=== PATIENT | male | born 1940 | race African-American/Black ===

== ENCOUNTER 2020-03-22 07:27 | Inpatient (IN) ==
[2020-03-22] MEDS ORDERED: DILTIAZEM 50 MG/10 ML VIAL IV STA ×2 (07:50→09:43)
[2020-03-22] MEDS ORDERED: SODIUM CHLORIDE 0.9% 1,000 ML IV STA (07:50)
[2020-03-22 08:01] LABS: Basophils % 0.3 % (0.0-0.8); Eosinophils # 0.1 10*3/uL (0.0-0.87); Eosinophils % 0.8 % (0.00-10.9); Hematocrit 31.5 VOL% (42.0-52.0); Hemoglobin 9.6 GM/DL (14.0-18.0); Immature Granulocytes % 0.3 %; Immature Granulocytes Absolute 0.02 #; Lymphocytes # 0.7 10*3/uL (1.4-4.0); Lymphocytes % 11.5 % (21.2-54.2); Mean Corpuscular HGB Conc 30.5 GM/DL (32-36); Mean Corpuscular Volume 101.6 FL (87-102); Mean Platelet Volume 9.5 FL (9.6-12.0); Monocytes % 5.4 % (1.7-12.7); Neutrophils % 81.7 % (38.7-73.9); Platelet Count 170 T/CUMM (130-400); Red Cell Distribution Width 14.2 % (9.3-17.3); White Blood Count 5.9 T/CUMM (4-12)
[2020-03-22 08:10] LABS: INR 1.3; PT Patient Result 14.2 SECS (9.8-11.9); Partial Thromboplastin Time 27.6 SECS (23.9-33.8)
[2020-03-22] MEDS: dilTIAZem Drip 125 MG/125 ML PREMIX IV SCH ×2 (08:13→11:11)
[2020-03-22 08:27] LABS: Alanine Aminotransferase 21 U/L (16-61); Albumin 2.9 G/DL (3.4-5.0); Alkaline Phosphatase 102 U/L (45-117); Aspartate Amino Transferase 12 U/L (0-37); Blood Urea Nitrogen 28 MG/DL (7-18); Calcium 9.5 MG/DL (8.5-10.1); Estimated Glom Filtration Rate 45 ML/MIN; Glucose 267 MG/DL (74-106); Osmolality,Calculated 295.3 MOS/KG (273-304); Total Protein 7.1 G/DL (6.4-8.3)
[2020-03-22] MEDS ORDERED: DOCUSATE SODIUM 100 MG CAPSULE PO PRN (09:37)
[2020-03-22] MEDS ORDERED: ONDANSETRON 4 MG/2 ML VIAL IV PRN (09:37)
[2020-03-22] MEDS ORDERED: DEXTROSE 50% 25 GM/50 ML VIAL IV PRN (09:37)
[2020-03-22] MEDS ORDERED: ACETAMINOPHEN 325 MG TABLET PO PRN (09:37)
[2020-03-22] MEDS ORDERED: GLUCAGON 1 MG VIAL IM PRN (09:37)
[2020-03-22] MEDS ORDERED: AZITHROMYCIN INJ 500 MG in SODIUM CHLORIDE 0.9% 250 ML IV SCH (10:00)
[2020-03-22] MEDS ORDERED: ENOXAPARIN 40 MG/0.4 ML SYRINGE SUBCUT SCH (10:00)
[2020-03-22] MEDS: methylPREDNISolone SOD SUC 40 MG/1 ML VIAL IV SCH ×3 (12:00→21:57)
[2020-03-22] MEDS: LEVALBUTEROL 1.25 MG/3 ML NEB RESP TX SCH ×2 (13:08→20:12)
[2020-03-22] MEDS ORDERED: AMIODARONE 150 MG/3 ML VIAL ONE (13:24)
[2020-03-22] MEDS ORDERED: AMIODARONE 450 MG/9 ML VIAL IV ONE (13:26)
[2020-03-22] MEDS: TERAZOSIN 5 MG CAPSULE PO SCH (17:15)
[2020-03-22] MEDS: ASCORBIC ACID 500 MG TABLET PO SCH ×2 (17:25→21:45)
[2020-03-22] MEDS: cefTRIAXone 1,000 MG in SYRINGE 1 EACH IV SCH (17:30)
[2020-03-22 17:41] LABS: Bacteria,Urine Occasional /HPF (Few); Bilirubin,Urine Negative (Negative); Blood, Urine Small mg/dL (Negative); Glucose,Urine (UA) 50 mg/dL (Negative); Hyaline Casts,Urine 13 /LPF (0-3); Ketones,Urine 5 mg/dL (Negative); Mucus,Urine Occasional /LPF (Occasional); Nitrite,Urine Negative (Negative); Protein,Urine 30 MG/DL; RBC,Urine 4 /HPF (0-4); Squamous Epithelial Cell,Urine Occasional /HPF (0-10); Urine Appearance CLEAR (Clear); Urine Color Yellow (Yellow); Urine Specific Gravity 1.021 (1.001-1.035); Urine Urobilinogen < 2.0 EU/DL (0.2-1.0); WBC,Urine 4 /HPF (0-6)
[2020-03-22] MEDS: ENOXAPARIN 80 MG/0.8 ML SYRINGE SUBCUT SCH (18:14)
[2020-03-22] MEDS: SODIUM CHLORIDE 0.9% 1,000 ML IV SCH ×2 (18:15→19:05)
[2020-03-22] MEDS: INSULIN LISPRO 100 UNIT/ML SUBCUT SCH ×3 (18:52→21:47)
[2020-03-22] MEDS: glipiZIDE 10 MG TABLET PO SCH (21:45)
[2020-03-22] MEDS: AZITHROMYCIN INJ 500 MG in SODIUM CHLORIDE 0.9% 250 ML IV SCH (22:00)
[2020-03-22] MEDS: AMIODARONE INJ 450 MG in DEXTROSE 5% 241 ML IV SCH (23:34)
[2020-03-23] MEDS: LEVALBUTEROL 1.25 MG/3 ML NEB RESP TX SCH ×4 (01:42→19:20)
[2020-03-23] MEDS: ENOXAPARIN 80 MG/0.8 ML SYRINGE SUBCUT SCH ×2 (01:57→15:48)
[2020-03-23] MEDS: methylPREDNISolone SOD SUC 40 MG/1 ML VIAL IV SCH ×4 (04:19→23:13)
[2020-03-23 05:52] LABS: Basophils % 0.1 % (0.0-0.8); Hemoglobin 8.5 GM/DL (14.0-18.0); Immature Granulocytes % 0.5 %; Immature Granulocytes Absolute 0.04 #; Lymphocytes # 0.4 10*3/uL (1.4-4.0); Lymphocytes % 4.8 % (21.2-54.2); Mean Corpuscular HGB Conc 30.4 GM/DL (32-36); Mean Corpuscular Volume 102.6 FL (87-102); Mean Platelet Volume 9.7 FL (9.6-12.0); Monocytes % 0.7 % (1.7-12.7); Neutrophils % 93.9 % (38.7-73.9); Platelet Count 162 T/CUMM (130-400); Red Blood Count 2.73 MC/CUMM (3.8-5.5); Red Cell Distribution Width 13.7 % (9.3-17.3); White Blood Count 7.3 T/CUMM (4-12)
[2020-03-23 06:28] LABS: Hypochromasia Slight; Lymphocytes 5 % (20-55); Macrocytosis 1+; Platelet Estimate Normal; Segmented Neutrophils 95 % (50-85); Total Cells Counted 100
[2020-03-23] MEDS: SODIUM CHLORIDE 0.9% 1,000 ML IV SCH ×2 (06:35→12:08)
[2020-03-23] MEDS ORDERED: ETOMIDATE 20 MG/10 ML VIAL IV ONE (06:54)
[2020-03-23] MEDS ORDERED: LIDOCAINE 2% 5 ML VIAL ONE (06:54)
[2020-03-23] MEDS ORDERED: propofoL 200 MG/20 ML VIAL IV ONE (06:54)
[2020-03-23] MEDS: INSULIN LISPRO 100 UNIT/ML SUBCUT SCH ×4 (09:30→21:00)
[2020-03-23] MEDS: glipiZIDE 10 MG TABLET PO SCH ×2 (09:31→20:51)
[2020-03-23] MEDS: TERAZOSIN 5 MG CAPSULE PO SCH (09:31)
[2020-03-23] MEDS: ASCORBIC ACID 500 MG TABLET PO SCH ×2 (09:31→20:51)
[2020-03-23] MEDS: cefTRIAXone 1,000 MG in SYRINGE 1 EACH IV SCH (10:09)
[2020-03-23 11:00] LABS: Albumin 2.7 G/DL (3.4-5.0); Bilirubin,Total 0.5 MG/DL (0.2-1.0); Calcium 9.2 MG/DL (8.5-10.1); Osmolality,Calculated 292.4 MOS/KG (273-304); Total Protein 7.2 G/DL (6.4-8.3)
[2020-03-23] MEDS: dilTIAZem Drip 125 MG/125 ML PREMIX IV SCH ×2 (12:34)
[2020-03-23] MEDS: AMIODARONE INJ 450 MG in DEXTROSE 5% 241 ML IV SCH (15:48)
[2020-03-23] MEDS: AZITHROMYCIN INJ 500 MG in SODIUM CHLORIDE 0.9% 250 ML IV SCH (22:00)
[2020-03-24] MEDS: LEVALBUTEROL 1.25 MG/3 ML NEB RESP TX SCH ×4 (01:00→19:35)
[2020-03-24] MEDS: ENOXAPARIN 80 MG/0.8 ML SYRINGE SUBCUT SCH ×2 (01:13→13:11)
[2020-03-24] MEDS: methylPREDNISolone SOD SUC 40 MG/1 ML VIAL IV SCH (04:01)
[2020-03-24 05:43] LABS: Hematocrit 25.6 VOL% (42.0-52.0); Hemoglobin 7.9 GM/DL (14.0-18.0); Immature Granulocytes % 0.5 %; Immature Granulocytes Absolute 0.05 #; Lymphocytes # 0.5 10*3/uL (1.4-4.0); Lymphocytes % 4.8 % (21.2-54.2); Mean Corpuscular HGB Conc 30.9 GM/DL (32-36); Mean Platelet Volume 10.3 FL (9.6-12.0); Monocytes % 2.8 % (1.7-12.7); Neutrophils % 91.9 % (38.7-73.9); Platelet Count 166 T/CUMM (130-400); Red Blood Count 2.56 MC/CUMM (3.8-5.5); Red Cell Distribution Width 13.3 % (9.3-17.3); White Blood Count 9.6 T/CUMM (4-12)
[2020-03-24 06:04] LABS: Albumin 2.5 G/DL (3.4-5.0); Bilirubin,Total 0.7 MG/DL (0.2-1.0); Calcium 8.8 MG/DL (8.5-10.1); Osmolality,Calculated 296.4 MOS/KG (273-304); Total Protein 6.5 G/DL (6.4-8.3)
[2020-03-24 06:48] LABS: Hypochromasia 1+; Lymphocytes 3 % (20-55); Segmented Neutrophils 94 % (50-85); Total Cells Counted 100
[2020-03-24 06:49] LABS: Macrocytosis 1+; Platelet Estimate Adequate
[2020-03-24] MEDS: AMIODARONE INJ 450 MG in DEXTROSE 5% 241 ML IV SCH (06:56)
[2020-03-24] MEDS: SODIUM CHLORIDE 0.9% 1,000 ML IV SCH ×2 (08:32→08:33)
[2020-03-24 08:33] LABS: % Iron Saturation 28.7 % (18-50); Ferritin 490.3 ng/ml (26-388)
[2020-03-24 08:37] LABS: Folate 13.2 NG/ML (5.4-24.0)
[2020-03-24] MEDS: INSULIN LISPRO 100 UNIT/ML SUBCUT SCH ×4 (09:54→21:11)
[2020-03-24] MEDS: AMIODARONE 200 MG TABLET PO SCH ×2 (09:55→21:11)
[2020-03-24] MEDS: ASCORBIC ACID 500 MG TABLET PO SCH ×2 (09:55→21:11)
[2020-03-24] MEDS: glipiZIDE 10 MG TABLET PO SCH ×2 (09:55→21:11)
[2020-03-24] MEDS: TERAZOSIN 5 MG CAPSULE PO SCH (09:55)
[2020-03-24] MEDS: MULTIVITAMIN (CENTRUM) TABLET PO SCH (09:55)
[2020-03-24] MEDS: methylPREDNISolone SOD SUC 125 MG/2 ML VIAL IV SCH ×2 (10:02→18:20)
[2020-03-24] MEDS: cefTRIAXone 1,000 MG in SYRINGE 1 EACH IV SCH (10:08)
[2020-03-24] MEDS: AZITHROMYCIN INJ 500 MG in SODIUM CHLORIDE 0.9% 250 ML IV SCH (21:11)
[2020-03-25] MEDS: LEVALBUTEROL 1.25 MG/3 ML NEB RESP TX SCH ×2 (01:22→08:33)
[2020-03-25] MEDS: methylPREDNISolone SOD SUC 125 MG/2 ML VIAL IV SCH (01:42)
[2020-03-25] MEDS: ENOXAPARIN 80 MG/0.8 ML SYRINGE SUBCUT SCH (03:22)
[2020-03-25 05:51] LABS: Hematocrit 26.3 VOL% (42.0-52.0); Immature Granulocytes % 1.2 %; Immature Granulocytes Absolute 0.12 #; Lymphocytes # 0.5 10*3/uL (1.4-4.0); Lymphocytes % 4.7 % (21.2-54.2); Mean Corpuscular HGB Conc 30.4 GM/DL (32-36); Mean Corpuscular Volume 100.8 FL (87-102); Mean Platelet Volume 9.8 FL (9.6-12.0); Monocytes % 2.4 % (1.7-12.7); Neutrophils % 91.7 % (38.7-73.9); Platelet Count 177 T/CUMM (130-400); Red Blood Count 2.61 MC/CUMM (3.8-5.5); Red Cell Distribution Width 13.2 % (9.3-17.3); White Blood Count 9.8 T/CUMM (4-12)
[2020-03-25 06:17] LABS: Osmolality,Calculated 293.1 MOS/KG (273-304)
[2020-03-25 06:25] LABS: Lymphocytes 4 % (20-55); Platelet Estimate Adequate; Segmented Neutrophils 92 % (50-85); Total Cells Counted 100
[2020-03-25 06:26] LABS: Hypochromasia 2+; Macrocytosis Slight
[2020-03-25] MEDS ORDERED: methylPREDNISolone SOD SUC 40 MG/1 ML VIAL IV SCH (09:00)
[2020-03-25] MEDS: MULTIVITAMIN (CENTRUM) TABLET PO SCH (09:01)
[2020-03-25] MEDS: ASCORBIC ACID 500 MG TABLET PO SCH (09:02)
[2020-03-25] MEDS: TERAZOSIN 5 MG CAPSULE PO SCH (09:02)
[2020-03-25] MEDS: glipiZIDE 10 MG TABLET PO SCH (09:02)
[2020-03-25] MEDS: AMIODARONE 200 MG TABLET PO SCH (09:02)
[2020-03-25] MEDS: INSULIN LISPRO 100 UNIT/ML SUBCUT SCH (09:06)
[2020-03-25] MEDS: cefTRIAXone 1,000 MG in SYRINGE 1 EACH IV SCH (09:06)
[2020-03-25 12:57] VITALS: BP 137/71
== END 2020-03-25 12:00 | disposition home health service (06) | DRG 308 ==
LOC: EDUNIT# → EDBD → N.ED 07:27 → N.EDINP 09:30 → N.TELEN 18:30
PROVIDERS: ADMIT Internal Medicine; ATTEND Internal Medicine

== ENCOUNTER 2020-04-27 00:21 | Inpatient (IN) ==
[2020-04-27] MEDS ORDERED: SODIUM CHLORIDE 0.9% 1,000 ML IV STA (00:43)
[2020-04-27 01:45] LABS: ABG Base Excess 4.6 MMOL/L (-2.5-2.5); ABG HCO3 28.6 MMOL/L (20-26); ABG Oxygen Saturation 98.6 % (95-100); ABG PCO2 59.6 MM HG (35-48); ABG PH 7.334 (7.35-7.45); ABG TCO2 29.5 MMOL/L (23-27); Allen Test Positive
[2020-04-27 01:48] LABS: Basophils % 0.3 % (0.0-0.8); Hematocrit 27.3 VOL% (42.0-52.0); Hemoglobin 8.3 GM/DL (14.0-18.0); Immature Granulocytes % 0.9 %; Lymphocytes # 0.5 10*3/uL (1.4-4.0); Lymphocytes % 4.3 % (21.2-54.2); Mean Corpuscular HGB Conc 30.4 GM/DL (32-36); Mean Corpuscular Volume 102.2 FL (87-102); Monocytes % 2.1 % (1.7-12.7); NRBC # 0.05 10*3/uL; Neutrophils % 92.4 % (38.7-73.9); Platelet Count 165 T/CUMM (130-400); Red Blood Count 2.67 MC/CUMM (3.8-5.5); Red Cell Distribution Width 20.4 % (9.3-17.3); White Blood Count 11.7 T/CUMM (4-12)
[2020-04-27] MEDS ORDERED: PIPERACILLIN/TAZOBACTAM 3,375 MG in SODIUM CHLORIDE 0.9% 100 ML IV STA (01:53)
[2020-04-27 02:00] LABS: INR 1.4; PT Patient Result 15.2 SECS (9.8-11.9)
[2020-04-27 02:10] LABS: Albumin 2.4 G/DL (3.4-5.0); Bilirubin,Total 0.5 MG/DL (0.2-1.0); Calcium 7.9 MG/DL (8.5-10.1); Osmolality,Calculated 280.7 MOS/KG (273-304); Potassium 4.6 MMOL/L (3.5-5.1); Total Protein 5.8 G/DL (6.4-8.3)
[2020-04-27 02:36] LABS: Lymphocytes 5 % (20-55); Platelet Estimate Adequate; Segmented Neutrophils 92 % (50-85); Total Cells Counted 100
[2020-04-27 02:37] LABS: Hypochromasia 1+; Macrocytosis Slight
[2020-04-27] MEDS ORDERED: PIPERACILLIN/TAZOBACTAM 3,375 MG VIAL IV ONE (05:07)
[2020-04-27] MEDS ORDERED: GLUCAGON 1 MG VIAL IM PRN (07:05)
[2020-04-27] MEDS ORDERED: DEXTROSE 50% 25 GM/50 ML VIAL IV PRN (07:05)
[2020-04-27] MEDS ORDERED: ALBUTEROL/IPRATROPIUM 3 ML NEB RESP TX PRN (07:13)
[2020-04-27] MEDS ORDERED: ONDANSETRON 4 MG/2 ML VIAL IV PRN (07:13)
[2020-04-27] MEDS ORDERED: SODIUM CHLORIDE 0.9% 1,000 ML IV SCH (07:30)
[2020-04-27] MEDS: INSULIN LISPRO 100 UNIT/ML SUBCUT SCH ×4 (08:09→21:07)
[2020-04-27 09:11] LABS: Folate 19.5 NG/ML (5.4-24.0); Vitamin B12 > 2000 PG/ML (211-911)
[2020-04-27] MEDS: MAGNESIUM OXIDE 400 MG TABLET PO SCH (09:25)
[2020-04-27] MEDS: APIXABAN 2.5 MG TABLET PO SCH ×2 (09:26→20:45)
[2020-04-27] MEDS: MULTIVITAMIN (CENTRUM) TABLET PO SCH (09:26)
[2020-04-27] MEDS: FINASTERIDE 5 MG TABLET PO SCH (09:26)
[2020-04-27] MEDS: ASPIRIN EC 81 MG TABLET PO SCH (09:26)
[2020-04-27] MEDS: AMIODARONE 200 MG TABLET PO SCH ×2 (09:26→20:45)
[2020-04-27] MEDS: DOCUSATE SODIUM 100 MG CAPSULE PO PRN ×2 (09:42→20:45)
[2020-04-27] MEDS: PIPERACILLIN/TAZOBACTAM 3,375 MG in SODIUM CHLORIDE 0.9% 100 ML IV SCH ×2 (09:43→17:16)
[2020-04-27] MEDS: glipiZIDE 10 MG TABLET PO SCH ×2 (09:53→20:45)
[2020-04-28] MEDS: PIPERACILLIN/TAZOBACTAM 3,375 MG in SODIUM CHLORIDE 0.9% 100 ML IV SCH ×3 (03:02→17:52)
[2020-04-28 05:51] LABS: Basophils # 0.1 10*3/uL (0.0-0.2); Basophils % 0.3 % (0.0-0.8); Eosinophils % 0.1 % (0.00-10.9); Hematocrit 30.3 VOL% (42.0-52.0); Hemoglobin 9.2 GM/DL (14.0-18.0); Immature Granulocytes % 2.3 %; Immature Granulocytes Absolute 0.43 #; Lymphocytes # 1.1 10*3/uL (1.4-4.0); Lymphocytes % 5.8 % (21.2-54.2); Mean Corpuscular HGB Conc 30.4 GM/DL (32-36); Mean Corpuscular Volume 104.1 FL (87-102); Mean Platelet Volume 10.1 FL (9.6-12.0); NRBC # 0.05 10*3/uL; Neutrophils % 88.5 % (38.7-73.9); Platelet Count 225 T/CUMM (130-400); Red Blood Count 2.91 MC/CUMM (3.8-5.5); Red Cell Distribution Width 20.2 % (9.3-17.3); White Blood Count 19.1 T/CUMM (4-12)
[2020-04-28 06:19] LABS: Albumin 2.5 G/DL (3.4-5.0); Bilirubin,Total 0.7 MG/DL (0.2-1.0); Calcium 8.1 MG/DL (8.5-10.1); Osmolality,Calculated 285.3 MOS/KG (273-304); Total Protein 6.4 G/DL (6.4-8.3)
[2020-04-28] MEDS: MAGNESIUM OXIDE 400 MG TABLET PO SCH (09:36)
[2020-04-28] MEDS: APIXABAN 2.5 MG TABLET PO SCH ×2 (09:37→21:35)
[2020-04-28] MEDS: MULTIVITAMIN (CENTRUM) TABLET PO SCH (09:37)
[2020-04-28] MEDS: FINASTERIDE 5 MG TABLET PO SCH (09:37)
[2020-04-28] MEDS: AMIODARONE 200 MG TABLET PO SCH ×2 (09:37→21:35)
[2020-04-28] MEDS: ASPIRIN EC 81 MG TABLET PO SCH (09:37)
[2020-04-28] MEDS: DOCUSATE SODIUM 100 MG CAPSULE PO PRN (09:37)
[2020-04-28] MEDS: glipiZIDE 10 MG TABLET PO SCH ×2 (09:37→21:35)
[2020-04-28] MEDS: INSULIN LISPRO 100 UNIT/ML SUBCUT SCH ×4 (09:38→21:35)
[2020-04-28] MEDS ORDERED: SODIUM CHLORIDE 0.9% 1,000 ML IV SCH (15:30)
[2020-04-28] MEDS ORDERED: BISACODYL 5 MG TABLET PO ONE (18:01)
[2020-04-29] MEDS: PIPERACILLIN/TAZOBACTAM 3,375 MG in SODIUM CHLORIDE 0.9% 100 ML IV SCH ×2 (01:50→09:30)
[2020-04-29 06:47] LABS: Calcium 7.7 MG/DL (8.5-10.1); Osmolality,Calculated 288.8 MOS/KG (273-304); Potassium 4.8 MMOL/L (3.5-5.1)
[2020-04-29 06:51] LABS: Basophils % 0.2 % (0.0-0.8); Eosinophils # 0.1 10*3/uL (0.0-0.87); Eosinophils % 0.7 % (0.00-10.9); Hematocrit 23.6 VOL% (42.0-52.0); Immature Granulocytes % 1.5 %; Immature Granulocytes Absolute 0.18 #; Lymphocytes # 1.2 10*3/uL (1.4-4.0); Lymphocytes % 9.7 % (21.2-54.2); Mean Corpuscular HGB Conc 30.5 GM/DL (32-36); Mean Corpuscular Volume 106.8 FL (87-102); Mean Platelet Volume 9.7 FL (9.6-12.0); Monocytes % 6.8 % (1.7-12.7); NRBC # 0.02 10*3/uL; Neutrophils % 81.1 % (38.7-73.9); Red Blood Count 2.21 MC/CUMM (3.8-5.5); Red Cell Distribution Width 19.9 % (9.3-17.3); White Blood Count 12.1 T/CUMM (4-12)
[2020-04-29 06:53] LABS: Hemoglobin 7.2 GM/DL (14.0-18.0); Platelet Count 168 T/CUMM (130-400)
[2020-04-29] MEDS ORDERED: SODIUM CHLORIDE 0.9% 1,000 ML IV PRN (08:00)
[2020-04-29] MEDS: INSULIN LISPRO 100 UNIT/ML SUBCUT SCH ×4 (09:27→22:04)
[2020-04-29] MEDS: APIXABAN 2.5 MG TABLET PO SCH ×2 (09:28→21:02)
[2020-04-29] MEDS: AMIODARONE 200 MG TABLET PO SCH ×2 (09:28→21:02)
[2020-04-29] MEDS: MULTIVITAMIN (CENTRUM) TABLET PO SCH (09:28)
[2020-04-29] MEDS: FINASTERIDE 5 MG TABLET PO SCH (09:28)
[2020-04-29] MEDS: ASPIRIN EC 81 MG TABLET PO SCH (09:28)
[2020-04-29] MEDS: MAGNESIUM OXIDE 400 MG TABLET PO SCH (09:28)
[2020-04-29] MEDS: glipiZIDE 10 MG TABLET PO SCH ×2 (09:29→21:02)
[2020-04-29] MEDS: ACETAMINOPHEN 325 MG TABLET PO PRN (13:24)
[2020-04-29] MEDS: TERAZOSIN 5 MG CAPSULE PO SCH (21:03)
[2020-04-30] MEDS: PIPERACILLIN/TAZOBACTAM 3,375 MG in SODIUM CHLORIDE 0.9% 100 ML IV SCH ×3 (02:12→20:40)
[2020-04-30 06:48] LABS: Basophils # 0.1 10*3/uL (0.0-0.2); Basophils % 0.4 % (0.0-0.8); Eosinophils # 0.1 10*3/uL (0.0-0.87); Eosinophils % 0.5 % (0.00-10.9); Hematocrit 33.3 VOL% (42.0-52.0); Immature Granulocytes % 2.7 %; Immature Granulocytes Absolute 0.45 #; Lymphocytes % 5.8 % (21.2-54.2); Mean Corpuscular Volume 103.1 FL (87-102); Mean Platelet Volume 9.7 FL (9.6-12.0); Monocytes % 4.8 % (1.7-12.7); NRBC # 0.04 10*3/uL; Neutrophils % 85.8 % (38.7-73.9); Platelet Count 193 T/CUMM (130-400); Red Blood Count 3.23 MC/CUMM (3.8-5.5); White Blood Count 16.7 T/CUMM (4-12)
[2020-04-30 07:10] LABS: Calcium 8.2 MG/DL (8.5-10.1); Osmolality,Calculated 280.4 MOS/KG (273-304); Potassium 4.8 MMOL/L (3.5-5.1)
[2020-04-30] MEDS ORDERED: FUROSEMIDE 20 MG/2 ML VIAL IV ONE (08:30)
[2020-04-30] MEDS: MAGNESIUM OXIDE 400 MG TABLET PO SCH (09:35)
[2020-04-30] MEDS: MULTIVITAMIN (CENTRUM) TABLET PO SCH (09:35)
[2020-04-30] MEDS: ASPIRIN EC 81 MG TABLET PO SCH (09:35)
[2020-04-30] MEDS: glipiZIDE 10 MG TABLET PO SCH ×2 (09:35→20:35)
[2020-04-30] MEDS: APIXABAN 2.5 MG TABLET PO SCH ×2 (09:36→20:35)
[2020-04-30] MEDS: AMIODARONE 200 MG TABLET PO SCH ×2 (09:36→20:35)
[2020-04-30] MEDS: FINASTERIDE 5 MG TABLET PO SCH (09:36)
[2020-04-30] MEDS: INSULIN LISPRO 100 UNIT/ML SUBCUT SCH ×4 (10:30→20:39)
[2020-04-30] MEDS: ALBUTEROL/IPRATROPIUM 3 ML NEB RESP TX SCH ×4 (11:53→23:11)
[2020-04-30] MEDS: LINEZOLID INJ 600 MG in PREMIX 1 EACH IV SCH (17:30)
[2020-04-30] MEDS: TERAZOSIN 5 MG CAPSULE PO SCH (20:35)
[2020-04-30] MEDS: POLYETHYLENE GLYCOL POWDER 17 GM PACK PO SCH (20:35)
[2020-04-30] MEDS: DOCUSATE SODIUM 100 MG CAPSULE PO SCH (20:35)
[2020-05-01] MEDS: ACETAMINOPHEN 325 MG TABLET PO PRN ×2 (00:52→20:31)
[2020-05-01] MEDS: PIPERACILLIN/TAZOBACTAM 3,375 MG in SODIUM CHLORIDE 0.9% 100 ML IV SCH ×3 (02:09→20:28)
[2020-05-01] MEDS: ALBUTEROL/IPRATROPIUM 3 ML NEB RESP TX SCH ×5 (02:54→20:03)
[2020-05-01 06:01] LABS: Basophils % 0.2 % (0.0-0.8); Eosinophils # 0.1 10*3/uL (0.0-0.87); Eosinophils % 0.4 % (0.00-10.9); Hematocrit 27.5 VOL% (42.0-52.0); Hemoglobin 8.4 GM/DL (14.0-18.0); Immature Granulocytes % 1.1 %; Immature Granulocytes Absolute 0.16 #; Lymphocytes # 0.8 10*3/uL (1.4-4.0); Lymphocytes % 5.1 % (21.2-54.2); Mean Corpuscular HGB Conc 30.5 GM/DL (32-36); Mean Platelet Volume 9.8 FL (9.6-12.0); Monocytes % 5.1 % (1.7-12.7); Neutrophils % 88.1 % (38.7-73.9); Platelet Count 180 T/CUMM (130-400); Red Blood Count 2.67 MC/CUMM (3.8-5.5); Red Cell Distribution Width 19.2 % (9.3-17.3); White Blood Count 14.6 T/CUMM (4-12)
[2020-05-01 06:20] LABS: Calcium 8.2 MG/DL (8.5-10.1); Osmolality,Calculated 281.5 MOS/KG (273-304); Potassium 4.4 MMOL/L (3.5-5.1)
[2020-05-01] MEDS: LINEZOLID INJ 600 MG in PREMIX 1 EACH IV SCH ×2 (06:21→17:15)
[2020-05-01] MEDS: INSULIN LISPRO 100 UNIT/ML SUBCUT SCH ×4 (08:43→20:28)
[2020-05-01] MEDS: FINASTERIDE 5 MG TABLET PO SCH (08:44)
[2020-05-01] MEDS: ASPIRIN EC 81 MG TABLET PO SCH (08:44)
[2020-05-01] MEDS: AMIODARONE 200 MG TABLET PO SCH ×2 (08:44→20:27)
[2020-05-01] MEDS: MAGNESIUM OXIDE 400 MG TABLET PO SCH (08:44)
[2020-05-01] MEDS: glipiZIDE 10 MG TABLET PO SCH ×2 (08:44→20:28)
[2020-05-01] MEDS: MULTIVITAMIN (CENTRUM) TABLET PO SCH (08:44)
[2020-05-01] MEDS: APIXABAN 2.5 MG TABLET PO SCH (08:44)
[2020-05-01] MEDS: POLYETHYLENE GLYCOL POWDER 17 GM PACK PO SCH ×2 (08:45→20:27)
[2020-05-01] MEDS: DOCUSATE SODIUM 100 MG CAPSULE PO SCH ×2 (08:45→20:27)
[2020-05-01] MEDS: TERAZOSIN 5 MG CAPSULE PO SCH (20:27)
[2020-05-01] MEDS ORDERED: HEPARIN 5,000 UNIT/1 ML VIAL SUBCUT SCH (22:00)
[2020-05-02 00:11] VITALS: BP 149/65
== END 2020-05-01 23:34 | disposition expired | DRG 177 ==
LOC: N.ED 00:21 → N.EDINP 00:21 → N.5E 06:10 → N.4E 06:51 → SUATTDRO 04-28 15:19
PROVIDERS: ADMIT Family Medicine; ATTEND Hospitalist